=== PATIENT | female | born 1955 | race Caucasian/White ===

== ENCOUNTER → 2017-05-26 | Outpatient (CLI) | payer OTHER ==
--- NOTE | 2017-05-28 10:29 | MM ---
Reason for exam: screening (asymptomatic). Last mammogram was performed 1 year ago. History: Patient is postmenopausal and had first child at age 33. Physical Findings: A clinical breast exam by your physician is recommended on an annual basis and results should be correlated with mammographic findings. MG Screening Mammo w CAD Bilateral CC and MLO view(s) were taken. Prior study comparison: May 26, 2016, bilateral MG screening mammo w CAD. May 25, 2015, bilateral MG screening mammo w CAD. May 22, 2014, bilateral MG screening mammo w CAD. The breast tissue is heterogeneously dense. This may lower the sensitivity of mammography. No significant changes when compared with prior studies. ASSESSMENT: Benign, BI-RAD 2 RECOMMENDATION: Routine screening mammogram of both breasts in 1 year.
== END | disposition home or self-care (01) ==
LOC: RADMAMWWP 08:03
PROVIDERS: ATTEND Internal Medicine
DX: Z12.31 Encounter for screening mammogram for malignant neoplasm of breast (principal)

== ENCOUNTER → 2018-06-23 | Outpatient (CLI) | payer OTHER ==
--- NOTE | 2018-06-24 15:07 | MM ---
Reason for exam: screening (asymptomatic). Last mammogram was performed 1 year and 1 month ago. History: Patient is postmenopausal and had first child at age 33. Physical Findings: A clinical breast exam by your physician is recommended on an annual basis and results should be correlated with mammographic findings. MG Screening Mammo w CAD Bilateral CC and MLO view(s) were taken. Prior study comparison: May 26, 2017, bilateral MG screening mammo w CAD. May 26, 2016, bilateral MG screening mammo w CAD. There are scattered fibroglandular densities. There is no discrete abnormality. No significant changes when compared with prior studies. ASSESSMENT: Negative, BI-RAD 1 RECOMMENDATION: Routine screening mammogram of both breasts in 1 year.
== END | disposition home or self-care (01) ==
LOC: RADMAMWWP 16:51
PROVIDERS: ATTEND Internal Medicine
DX: Z12.31 Encounter for screening mammogram for malignant neoplasm of breast (principal)
CPT/HCPCS: 77067

== ENCOUNTER → 2019-08-01 | Outpatient (CLI) | payer OTHER ==
--- NOTE | 2019-08-02 12:56 | MM ---
Reason for exam: screening (asymptomatic). Last mammogram was performed 1 year and 1 month ago. History: Patient is postmenopausal and had first child at age 33. Physical Findings: A clinical breast exam by your physician is recommended on an annual basis and results should be correlated with mammographic findings. MG Screening Mammo w CAD Bilateral CC and MLO view(s) were taken. Prior study comparison: June 23, 2018, bilateral MG screening mammo w CAD. May 26, 2017, bilateral MG screening mammo w CAD. The breast tissue is heterogeneously dense. This may lower the sensitivity of mammography. No suspicious abnormality. No significant changes when compared with prior studies. ASSESSMENT: Negative, BI-RAD 1 RECOMMENDATION: Routine screening mammogram of both breasts in 1 year.
== END | disposition home or self-care (01) ==
LOC: RADMAMWWP 11:46
PROVIDERS: ATTEND Internal Medicine
DX: Z12.31 Encounter for screening mammogram for malignant neoplasm of breast (principal)
CPT/HCPCS: 77067

== ENCOUNTER → 2020-10-02 | Outpatient (CLI) | payer OTHER ==
--- NOTE | 2020-10-03 14:39 | MM ---
Reason for exam: screening (asymptomatic). Last mammogram was performed 1 year and 2 months ago. History: Patient is postmenopausal, history of other cancer, and had first child at age 33. Physical Findings: A clinical breast exam by your physician is recommended on an annual basis and results should be correlated with mammographic findings. MG Screening Mammo w CAD Bilateral CC and MLO view(s) were taken. CV view(s) were taken of the right breast. Prior study comparison: August 01, 2019, bilateral MG screening mammo w CAD. June 23, 2018, bilateral MG screening mammo w CAD. There are scattered fibroglandular densities. No significant changes when compared with prior studies. ASSESSMENT: Benign, BI-RAD 2 RECOMMENDATION: Routine screening mammogram of both breasts in 1 year.
== END | disposition home or self-care (01) ==
LOC: RADMAMWWP 08:09
PROVIDERS: ATTEND Internal Medicine
DX: Z12.31 Encounter for screening mammogram for malignant neoplasm of breast (principal)
CPT/HCPCS: 77067

== ENCOUNTER → 2021-10-30 | Outpatient (CLI) | payer OTHER ==
--- NOTE | 2021-11-01 09:21 | MM ---
Reason for exam: screening (asymptomatic). Last mammogram was performed 1 year and 1 month ago. History: Patient is postmenopausal, history of other cancer, and had first child at age 33. Physical Findings: A clinical breast exam by your physician is recommended on an annual basis and results should be correlated with mammographic findings. MG Screening Mammo w CAD Bilateral CC and MLO view(s) were taken. Prior study comparison: October 02, 2020, bilateral MG screening mammo w CAD. August 01, 2019, bilateral MG screening mammo w CAD. There are scattered fibroglandular densities. There is chronic nodularity in the left breast. No significant changes when compared with prior studies. ASSESSMENT: Benign, BI-RAD 2 RECOMMENDATION: Routine screening mammogram of both breasts in 1 year.
== END | disposition home or self-care (01) ==
LOC: RADMAMWWP 16:31
PROVIDERS: ATTEND Internal Medicine
DX: Z12.31 Encounter for screening mammogram for malignant neoplasm of breast (principal)
CPT/HCPCS: 77067

== ENCOUNTER → 2022-11-04 | Outpatient (CLI) | payer OTHER ==
--- NOTE | 2022-11-05 08:26 | MM ---
Reason for Exam: Screening (asymptomatic). Last screening mammogram was performed 12 month(s) ago. Patient History: Menarche at age 13. First Full-Term at age 33. Late child-bearing (after 30). Postmenopausal. Other cancer. Risk Values: Esmer 5 year model risk: 2.3%. NCI Lifetime model risk: 8.2%. Prior Study Comparison: 05/26/2016 Bilateral Screening Mammogram, [facility]. 05/26/2017 Bilateral Screening Mammogram, [facility]. 06/23/2018 Bilateral Screening Mammogram, [facility]. 08/01/2019 Bilateral Screening Mammogram, [facility]. 10/02/2020 Bilateral Screening Mammogram, [facility]. 10/30/2021 Bilateral Screening Mammogram, [facility]. Tissue Density: The breast tissue is almost entirely fat. Findings: Analyzed By CAD. There is no suspicious group of microcalcifications or new suspicious mass in either breast. Overall Assessment: Negative, BI-RAD 1 Management: Screening Mammogram of both breasts in 1 year. A clinical breast exam by your physician is recommended on an annual basis and results should be correlated with mammographic findings. [facility] will attempt to contact patient to return for supplemental views and ultrasound if indicated. Electronically signed and approved by: Yao Carlton DO
== END | disposition home or self-care (01) ==
LOC: RADMAMWWP 13:14
PROVIDERS: ATTEND Internal Medicine
DX: Z12.31 Encounter for screening mammogram for malignant neoplasm of breast (principal); Z78.0 Asymptomatic menopausal state
CPT/HCPCS: 77067

== ENCOUNTER 2023-01-20 10:00 | Day surgery (SDC) | payer OTHER ==
[2023-01-15 10:16] VITALS: BMI 49.4
[~2023-01-20 10:00] MED LIST: LACTATED RINGERS 1,000 ML IV SCH; LIDOCAINE 1% (10MG/ML) FOR IV START INTRADERMA PRN
[2023-01-20 10:35] VITALS: RESP 16; TEMP 98.8
[2023-01-20] MEDS ORDERED: PROPOFOL 10 MG/ML 20 ML VIAL IV ONE (11:21)
--- NOTE | 2023-01-20 11:38 | P.PCN ---
Date of Procedure: 01/20/23 Procedure(s) Performed: BRIEF HISTORY: Patient is a 67-year-old pleasant white female scheduled for an elective colonoscopy as a part of evaluation of prior history of colon polyps. PROCEDURE PERFORMED: Colonoscopy. PREOPERATIVE DIAGNOSIS: History of colon polyps. IV sedation per Anesthesia. PROCEDURE: After informed consent was obtained, the patient, was brought into the endoscopy unit. IV sedation was administered by Anesthesia under continuous monitoring. Digital rectal examination was normal. Initially the Olympus CF-160 flexible video colonoscope was then inserted in the rectum, gradually advanced into the cecum without any difficulty. Careful examination was performed as the scope was gradually being withdrawn. Ileocecal valve and the appendiceal orifice were visualized and appeared normal. Prep was excellent. Mucosa of the cecum, ascending colon, transverse colon, descending colon, sigmoid colon, and rectum appeared normal. Scattered sigmoid diverticula Retroflexion was performed in the rectum and no lesions were seen. The patient tolerated the procedure well. IMPRESSION: Normal-appearing colon from rectum to cecum no evidence of colorectal neoplasia Moderate sigmoid diverticulosis . RECOMMENDATIONS: Findings of this examination were discussed with the patient as well as a family. She was advised to have a repeat screening colonoscopy in 10 years..
[2023-01-20 12:15] VITALS: BP 120/59; PULSE 86
== END 2023-01-20 12:42 | disposition home or self-care (01) ==
LOC: ORWHC2ENDO 10:00
PROVIDERS: ATTEND Internal Medicine Gastroenterology
DX: Z12.11 Encounter for screening for malignant neoplasm of colon (principal); K57.30 Diverticulosis of large intestine without perforation or abscess without bleeding; I10 Essential (primary) hypertension; Z87.19 Personal history of other diseases of the digestive system; Z79.899 Other long term (current) drug therapy
CPT/HCPCS: 45378; J2704

== ENCOUNTER → 2024-01-16 | Outpatient (CLI) | payer OTHER ==
[2024-01-16 12:06] LABS: INR 0.9 (<1.2); Partial Thromboplastin Time 24.1 sec (22.0-30.0); Prothrombin Time 10.1 sec (10.0-12.5)
[2024-01-16 22:31] LABS: HCT 40.9 % (37.2-46.3); HGB 13.1 g/dL (12.0-15.0); MCV 93.8 FL (80.0-97.0); Mean Platelet Volume 11.6 FL (9.5-12.2); NRBC Per 100 WBC 0 X 10*3/uL (0.00-0.01); Platelet Count 243 X 10*3/uL (140-440); RBC 4.36 X 10*6/uL (4.10-5.20); RDW 13.1 % (11.5-14.5); WBC 5.88 X 10*3/uL (4.50-10.00)
[2024-01-16 22:45] LABS: ALT 15 U/L (8-44); AST 18 U/L (13-35); Albumin 4.3 g/dL (3.8-4.9); Albumin/Globulin Ratio 1.43 Ratio (1.60-3.17); Alkaline Phosphatase 71 U/L (41-126); BUN/Creat Ratio 35.15 Ratio (12.00-20.00); Blood Urea Nitrogen 45.7 mg/dL (9.0-27.0); Carbon Dioxide 23.7 mmol/L (21.6-31.8); Chloride 107 mmol/L (96-109); Glucose 99 mg/dL (70-110); Sodium 144 mmol/L (135-145); Total Bilirubin 0.7 mg/dL (0.3-1.2); Total Protein 7.3 g/dL (6.2-8.2)
== END | disposition home or self-care (01) ==
LOC: LABWHC1 11:26
PROVIDERS: ATTEND Orthopaedic Surgery
DX: Z01.812 Encounter for preprocedural laboratory examination (principal); Z22.322 Carrier or suspected carrier of Methicillin resistant Staphylococcus aureus; M17.12 Unilateral primary osteoarthritis, left knee
CPT/HCPCS: 36415; 80053; 85027; 85610; 85730; 87070; 93005

== ENCOUNTER → 2024-02-01 | Outpatient (CLI) | payer OTHER ==
--- NOTE | 2024-02-01 17:44 | BD ---
EXAMINATION TYPE: Axial Bone Density DATE OF EXAM: 02/01/2024 CLINICAL HISTORY: 68 years old Female. ICD-10 CODE: N95.1MENOPAUSAL AND FEMALE CLIMACTERIC STA M85. 88 Height: 60.25 Weight: 269 FRAX RISK QUESTIONS: Family History (Parent hip fracture): no History of Fracture in Adulthood: no Secondary Osteoporosis: no Rheumatoid Arthritis: no RISK FACTORS HISTORY OF: Surgery to Spine/Hip(right/left)/Wrist (right/left): no MEDICATIONS: Thyroid Medications: no Osteoporosis Medications: no EXAM MEASUREMENTS: Bone mineral densitometry was performed using the Choister System. Bone mineral density as measured about the Lumbar spine is: ----- L1-L4(G/cm2): 1.159 T Score Values are as follows: ----- L1: 0.0 ----- L2: 0.9 ----- L3: -0.4 ----- L4: -1.6 ----- L1-L4: -0.2 Z Score Values are as follows: ----- L1: 0.5 ----- L2: 1.4 ----- L3: 0.1 ----- L4: -1.1 ----- L1-L4: 0.3 Bone mineral density has: Increased 11.8% since study of: 05/25/2015 Bone mineral density about the R hip (g/cm2): 1.080 Bone mineral density about the L hip (g/cm2): 1.182 T Score values are as follows: -----R Neck: -0.2 -----L Neck: -0.1 -----R Total: 0.6 -----L Total: 1.4 Z Score values are as follows: -----R Neck: 0.6 -----L Neck: 0.8 -----R Total: 1.1 -----L Total: 1.9 Bone mineral density has: Decreased -4.2% since study of: 05/25/2015 FRAX%s: The graph provided illustrates a 5.8% chance for a major osteoporotic fx and a 0.2% chance fo r the hips probability for fx in 10 years time. IMPRESSION: Normal (Values between +1 and -1 indicate normal bone mass). Consider repeating this study in 5 year s or sooner if there is some new clinical indication. NOTE: T-SCORE=SD OF THE YOUNG ADULT MEAN.
--- NOTE | 2024-02-03 08:35 | MM ---
Reason for Exam: Screening (asymptomatic). Last mammogram was performed 1 year(s) and 3 month(s) ago. Patient History: Menarche at age 13. First Full-Term at age 33. Late child-bearing (after 30). Postmenopausal. Other cancer. Risk Values: Esmer 5 year model risk: 2.3%. NCI Lifetime model risk: 7.9%. Prior Study Comparison: 10/02/2020 Bilateral Screening Mammogram, [facility]. 10/30/2021 Bilateral Screening Mammogram, [facility]. 11/04/2022 Bilateral MG screening mammo w CAD, [facility]. Tissue Density: The breasts are heterogeneously dense, which may obscure small masses. Findings: Analyzed By CAD. No suspicious calcifications. Within the right breast approximately 3.6 cm from the nipple centrally there is a nodule which is increased in size now measuring 0.9 cm. Recommend ultrasound. Chronic nodularity and benign-appearing lymph nodes. Benign calcifications. Overall Assessment: Incomplete: need additional imaging evaluation, BI-RAD 0 Management: Diagnostic Breast Ultrasound of the right breast. . Patient should continue monthly self-breast exams. A clinical breast exam by your physician is recommended on an annual basis. This exam should not preclude additional follow-up of suspicious palpable abnormalities. Note on Esmer scores and lifetime risk: 1. A Esmer score greater than 3% is considered moderate risk. If this is the case, consider specialist referral to assess eligibility for a risk reducing agent. 2. If overall lifetime risk for the development of breast cancer is 20% or higher, the patient may qualify for future screening with alternating mammogram and breast MRI. Electronically signed and approved by: Cholo Grewal M.D. Radiologis
== END | disposition home or self-care (01) ==
LOC: RADMAMWWP 14:01
PROVIDERS: ATTEND Internal Medicine
DX: Z12.31 Encounter for screening mammogram for malignant neoplasm of breast (principal); M85.88 Other specified disorders of bone density and structure, other site; Z78.0 Asymptomatic menopausal state
CPT/HCPCS: 77067; 77080

== ENCOUNTER → 2024-02-04 | Outpatient (CLI) | payer OTHER ==
--- NOTE | 2024-02-04 14:36 | USB ---
Reason for Exam: Additional evaluation requested from abnormal screening. Patient History: Menarche at age 13. First Full-Term at age 33. Late child-bearing (after 30). Postmenopausal. Other cancer. Risk Values: Esmer 5 year model risk: 2.3%. NCI Lifetime model risk: 7.9%. Technique: Method: Targeted. Prior Study Comparison: 10/30/2021 Bilateral Screening Mammogram, [facility]. 11/04/2022 Bilateral MG screening mammo w CAD, [facility]. 02/01/2024 Bilateral MG screening mammo w CAD, [facility]. Findings: The lower section of the breast of the right breast, the axilla of the right breast and the retroareolar of the right breast were scanned. There is a 0.7 x 0.3 x 0.8 cm hypoechoic area 7:00 position 4 cm from the nipple. This appears to correlate with the mammogram. This is not a simple cyst. Ultrasound-guided core biopsy is recommended.. Overall Assessment: Suspicious, BI-RAD 4 Management: Ultrasound Core Biopsy of the right breast. A clinical breast exam by your physician is recommended on an annual basis and results should be correlated with mammographic findings. This exam should not preclude additional follow-up of suspicious palpable abnormalities. Results were given to the patient verbally at the time of exam. Electronically signed and approved by: Sarmad Tran D.O. Radiologis
== END | disposition home or self-care (01) ==
LOC: RADUSWWP 13:59
PROVIDERS: ATTEND Internal Medicine
DX: R92.8 Other abnormal and inconclusive findings on diagnostic imaging of breast (principal); Z78.0 Asymptomatic menopausal state

== ENCOUNTER 2024-02-08 13:07 | Day surgery (SDC) | payer OTHER ==
[~2024-02-08 13:07] MED LIST changes: -LACTATED RINGERS 1,000 ML IV SCH; -LIDOCAINE 1% (10MG/ML) FOR IV START INTRADERMA PRN; +ONDANSETRON 4 MG/2 ML VIAL IVP PRN; +TRANEXAMIC 1,000 MG/100ML-NACL 1,000 MG in SALINE 1 100ML.BAG IVPB PRN
[2024-02-08] MEDS: MELOXICAM 7.5 MG TAB PO PRN (14:01)
[2024-02-08] MEDS: ACETAMINOPHEN TAB 500 MG TAB PO PRN (14:01)
[2024-02-08] MEDS: DEXAMETHASONE SOD PHOSPHATE 4 MG/ML 1 ML VIAL IV ONE (14:02)
[2024-02-08] MEDS: LACTATED RINGERS 1,000 ML IV SCH ×2 (14:02→23:00)
[2024-02-08] MEDS: ONDANSETRON 4 MG/2 ML VIAL IVP ONE (14:03)
[2024-02-08] MEDS: MIDAZOLAM 2 MG/2 ML VIAL IVP ONE (14:12)
--- NOTE | 2024-02-08 14:39 | P.ANPRN ---
Procedure Note - Anesthesia - Nerve Block Performed Left Adductor Canal Infusion Time Out Performed: Yes (1412) Date of Procedure: 02/08/24 Procedure Start Time: 14:15 Procedure Stop Time: 14:28 Location of Patient: PreOp Indication: Acute Post-Operative Pain, Requested by Surgeon Sedation Type: Sedate with meaningful contact maintained Preparation: Sterile Prep, Sterile Dressing Position: Supine Catheter: Indwelling Needle Types: Pajunk Needle Gauge: 18 Ultrasound used to visualize needle placement: Yes Ultrasound used to observe medication spread: Yes Injectate: 0.5% Ropivacaine (see comment for volume) (20 mL of block solution containing 10 ML of ropivacaine 0.5% mixed with 10 ML of 0.9% preservative-free normal saline) Blood Aspirated: No Pain Paresthesia on Injection Noted: No Resistance on Injection: Normal Image Stored and Saved: Yes Events: Other (see comment) (5 mL of block solution injected throughcatheter after negative aspiration.)
--- NOTE | 2024-02-08 14:40 | P.ANPRN ---
Procedure Note - Anesthesia - Nerve Block Performed Left iPack Single Time Out Performed: Yes (1412) Date of Procedure: 02/08/24 Procedure Start Time: 14:15 Procedure Stop Time: 14:28 Location of Patient: PreOp Indication: Acute Post-Operative Pain, Requested by Surgeon Sedation Type: Sedate with meaningful contact maintained Preparation: Sterile Prep, Sterile Dressing Position: Supine Catheter: None Needle Types: Pajunk Needle Gauge: 21 Ultrasound used to visualize needle placement: Yes Ultrasound used to observe medication spread: Yes Injectate: 0.5% Ropivacaine (see comment for volume) (20 mL of block solution containing 10 ML of ropivacaine 0.5% mixed with 10 ML of 0.9% preservative-free normal saline) Blood Aspirated: No Pain Paresthesia on Injection Noted: No Resistance on Injection: Normal Image Stored and Saved: Yes Events: Uneventful and Well Tolerated
[2024-02-08] MEDS ORDERED: bisacodyL 10 MG SUPP RECTAL PRN (15:26)
[2024-02-08] MEDS ORDERED: NALOXONE 0.4 MG/ML 1 ML VIAL IV PRN (15:26)
[2024-02-08] MEDS ORDERED: HYDROmorphone 0.5 MG/0.5 ML SYRINGE IVP PRN ×3 (15:26)
[2024-02-08] MEDS ORDERED: MAGNESIUM HYDROXIDE 2,400 MG/30 ML CUP PO PRN (15:26)
[2024-02-08] MEDS ORDERED: HYDROcodone/APAP 5-325MG 1 EACH TAB PO PRN (15:26)
[2024-02-08] MEDS ORDERED: GLYCOPYRROLATE 0.2 MG/ML 2 ML VIAL ONE (15:42)
[2024-02-08] MEDS ORDERED: TRANEXAMIC 1,000 MG/100ML-NACL PREMIX BAG ONE (15:42)
[2024-02-08] MEDS ORDERED: diphenhydrAMINE 50 MG/ML 1 ML VIAL ONE (15:42)
[2024-02-08] MEDS ORDERED: KETAMINE HCL IN 0.9 % NACL 50 MG/5 ML SYRINGE ONE (15:42)
[2024-02-08] MEDS ORDERED: fentaNYL (PF) 50 MCG/ML 2 ML AMP ONE (15:42)
[2024-02-08] MEDS ORDERED: PROPOFOL 10 MG/ML 20 ML VIAL IV ONE (15:42)
[2024-02-08] MEDS ORDERED: ROPIVACAINE 5 MG/ML 30 ML VIAL ONE (15:42)
[2024-02-08] MEDS ORDERED: SODIUM CHLORIDE 0.9% (PF) 10 ML VIAL ONE (15:42)
[2024-02-08] MEDS ORDERED: HYDROmorphone (PF) 1 MG/ML ONE (15:42)
[2024-02-08] MEDS ORDERED: MIDAZOLAM 2 MG/2 ML VIAL ONE (15:42)
[2024-02-08] MEDS: ceFAZolin 3 GM in SODIUM CHLORIDE 0.9% 100 ML IVPB PRN (15:47)
[2024-02-08] MEDS: ceFAZolin 1,000 MG in SODIUM CHLORIDE 0.9% 1,000 ML IRRIGATION ONE (16:15)
[2024-02-08] MEDS: LACTATED RINGERS 1,000 ML IV ONE (17:44)
--- NOTE | 2024-02-08 17:48 | P.OP ---
Date of Procedure: 02/08/24 Procedure(s) Performed: PREOPERATIVE DIAGNOSIS: 1. Left knee severe osteoarthritis with genu varum; 2. Extreme obesity (BMI 51), peripheral and central POSTOPERATIVE DIAGNOSIS: Left knee severe osteoarthritis with genu varum; 2. Extreme obesity (BMI 51), peripheral and central; 2. Diminished bone qual ity/osteopenia/osteoporosis OPERATION: Left knee cemented total replacement arthroplasty with stem extension; Increased complexity of case due to extreme peripheral obesity ANESTHESIA: Spinal and Regional (for postoperative pain control) ESTIMATED BLOOD LOSS: 75 ml. AIR DIRECTOR: Veronica Guardado PA-C (assistance with: patient positioning, retraction, exposure, hemostasis, leg positioning, implantation, irrigation, closure, dressing) COMPLICATIONS: None apparent. COMPONENTS IMPLANTED: Persona system from [employer] with tibial stem extension INDICATIONS: Lorenza is a 68 year old morbidly obese female with a history of severe left knee osteoarthritis. The patient's knee is end-stage, and conservative management has failed. Her left knee hyperextends by approximately 7 degrees and she has nearly 10 degrees of varus. She has undergone right knee replacement more than 10 years ago with good results. The operation of left knee replacement has been discussed at length in the office, as well as potential risks and complications. These are inclusive of, but not limited to: bleeding, infection, scarring, discomfort, blood vessel and nerve damage, need for further surgery, failure to relieve symptoms, persistence, recurrence, or worsening of problems, loosening, dislocation, wear, blood clot, pulmonary embolism, , gait dysfunction, stiffness, and other risks as discussed in the office. The patient elects to proceed and the consent form has been signed. PROCEDURE: The patient was taken to the operating room and positioned on the operating room table in the supine position. Anesthesia was initiated. Care was taken to make sure that all pressure points were adequately padded. The operative lower extremity was prepped and draped in the usual aseptic fashion using ChloraPrep. Ioban drape was used for the case and the patient received intravenous antibiotics within one hour of the incision. A pneumotourniquet and leg fulton were used for the case. The limb was exsanguinated with an Esmarch bandage and the tourniquet was inflated to 300 mmHg. Time-out was called confirming the patient's identity, side, procedure and administration of antibiotics and tranexamic acid. The incision was then created midline directly over the knee, carried down through skin and into the subcutaneous tissues and down to fascia. Severe peripheral obesity was noted. Full thickness subcutaneous medial flap was developed. Exposure was made more difficult due to the patient's severe obesity. Medial parapatellar arthrotomy was performed and the interior of the knee was inspected. There was end-stage osteoarthritis of the knee with a mild to moderate genu varum type deformity. The fat pad was excised and proximal medial release on the tibia was completed using meticulous dissection and a curved osteotome. The anterior cruciate ligament was taken down. Note was made of significant attrition of the anterior and significant degenerative appearance of the posterior cruciate ligaments. The exposure was excellent. The knee was flexed 90 degrees and the patella was everted. A spot was chosen on the femur approximately 1 cm anterior to the posterior cruciate ligament insertion and an intramedullary hole was created within the femur. The intramedullary guide was then set to 5 degrees of valgus. The distal cutting block was attached and pinned into position. An appropriate amount of distal femoral resection was set, and 2 mm was subtracted from the resection due to the patient's knee hyperextension. The oscillating saw was then used to make the distal femoral cut. This cut was confirmed to be flat with the flat end of an osteotome. The retractors were placed around the tibia and the tibial surface was addressed. The angle and depth of resection was adjusted using an extramedullary cutting guide, which needed to be placed in maximum diameter setting due to the circumference of the patient's ankle. The guide had a built-in 3 degree posterior slope cut. Alignment of the guide was made significantly more difficult due to the patient's severe obesity. Once the cutting guide was adjusted appropriately and in line with the axis of the tibia and confirmed to be in good position in relation to the second metatarsal and transmalleolar axis, the tibial cut was then created with protection of the posterior neurovascular structures and the collateral ligaments. Note was made of diminished bone quality, despite this patient's obesity, and therefore a short tibial stem extension was planned. The tibial cut surface was removed and sized. Femoral sizing was then accomplished using anterior referencing. Placement of this guide was made more difficult due to this patient's severe obesity. Care was taken to analyze the posterior condyles for signs of deficiency or severe wear, and adjustments to the guide were made, as appropriate. 5 degree external rotation pins were placed. The cutting jig for the femur was applied to these pins. The planned cuts were further analyzed prior to performing them with the oscillating saw. No femoral notching was produced. Bone fragments were removed and the cut surfaces were finished, as necessary, with a reciprocating saw. Spacer block technique was then used to confirm that the flexion and extension gaps were equal. Soft tissue releases and adjustment of the tibial and/or femoral cuts were made, as necessary, until the gaps were equal. This included release of the posterior cruciate ligament, which was tight in this patient and, if left unreleased, would have resulted in poor kinematics and possibly early loosening. The femur was then further finished for a posterior cruciate ligament substituting component. Patellar resurfacing was performed using a reamer. The size of the required patellar component was estimated and the patellar surface was then reamed down to a residual thickness which would recreate the [place] thickness with the component. This step was also made more complex due to the patient's severe obesity. The exact placement of the patellar component was adjusted for position based on preoperative x-rays and intraoperative findings. The trial components were inserted. The tibial tray was allowed to self center and the patella was noted to track very well. The position of the tibial component was marked and the tibia was then finished for a stemmed tibial component. Cement was mixed on the back table and applied to the final components. Trial components were removed and the cut surfaces of the bone were pulse lavaged thoroughly and dried. Cement was then applied to the tibial surface and pressurized into the surface using finger pressurization technique. The tibial component with stem extension was then applied and excess cement was removed after it was impacted securely and noted to be flush with the cut surface. In similar fashion, the cement was applied to the cut femoral surface, pressurized in using finger pressurization and the component was impacted into place. Excess cement was removed. The polyethylene spacer was then implanted and locked into position. The patellar component was then applied in similar technique and a patellar clamp was used to hold the patella in place as the cement hardened. Once the cement had fully hardened, the knee was reinspected. Any other cement extrusion was removed and final kinematic testing showed range of motion from 0 to 130 degrees with excellent stability, both medially and laterally and appropriate alignment of the leg. Hyperextension and varus had both been corrected to satisfaction. Patellar tracking was excellent. The knee was then thoroughly pulse lavaged with normal saline. The tourniquet was deflated and hemostasis was obtained with electrocautery and IV tranexamic acid, 1 g given at the start of the operation and 1 g at the start of closure. Closure was with #2 Ethibond in the fascia/capsule and supplemented with #2 Quill, 2-0 Vicryl suture was used for the subcutaneous tissues and 3-0 Quill for the skin. Closure was made more complex and took increased time due to the patient's severe obesity. Dermabond/Steri-Strips were then applied. A lightly compressive dressing was applied using Webril and an Darvin wrap. The patient was then transferred to stretcher and taken to the recovery room in stable condition. Sponge and needle counts were correct.
[2024-02-08] MEDS: HYDROmorphone 0.5 MG/0.5 ML SYRINGE IVP PRN (18:39)
--- NOTE | 2024-02-08 18:56 | XR ---
Left knee. HISTORY: Postop alignment COMPARISON: None. TECHNIQUE: 2 views left knee were obtained following placement of a left knee prosthesis. FINDINGS: There is near-anatomic alignment. There is no acute fracture.
[2024-02-08] MEDS: ROPIVACAINE 1,100 MG, SODIUM CHLORIDE 0.9% 500 ML 330 ML, EMPTY PAIN BALL 1 EACH MISCELLANE PRN (19:57)
[2024-02-08] MEDS: ONDANSETRON 4 MG/2 ML VIAL IVP PRN (20:56)
--- NOTE | 2024-02-08 22:18 | P.ANPRN ---
Procedure Note - Anesthesia - Nerve Block Performed Left Adductor Canal Infusion Time Out Performed: Yes (1912) Date of Procedure: 02/08/24 Procedure Start Time: :15 Procedure Stop Time: :25 Location of Patient: PreOp Indication: Acute Post-Operative Pain, Requested by Surgeon Sedation Type: Awake Preparation: Sterile Prep, Sterile Dressing Position: Supine Catheter: Indwelling Needle Types: Pajunk Needle Gauge: 18 Ultrasound used to visualize needle placement: Yes Ultrasound used to observe medication spread: Yes Injectate: 0.5% Ropivacaine (see comment for volume) Narrative: catheter was removed during the intraoperative procedure as per the surgeon it is close to the insertion site. Requested to place the catheter again in the recovery. Blood Aspirated: Yes Pain Paresthesia on Injection Noted: Yes Resistance on Injection: Normal Image Stored and Saved: Yes Events: Other (see comment) (20 ML of blocks block solution containing 10 ML of 0.5% ropivacaine mixed with 10 ML of preservative-free normal saline. 10mL out of 20 ML block solution used after catheter placement confirmation.)
[2024-02-08] MEDS: ASPIRIN 81 MG PO SCH (22:25)
[2024-02-08] MEDS: SENNOSIDES-DOCUSATE SODIUM 1 EACH TAB PO SCH (22:25)
[2024-02-08] MEDS: ceFAZolin 3 GM in SODIUM CHLORIDE 0.9% 100 ML IVPB SCH (22:34)
[2024-02-09] MEDS: HYDROcodone/APAP 5-325MG 1 EACH TAB PO PRN (01:35)
--- NOTE | 2024-02-09 07:16 | P.PN ---
Progress Note - Text Progress Note Date: 02/09/24 patient was seen and evaluated at bedside. Status post postoperative day 1 for left total knee arthroplasty patient had adductor canal catheter for postop pain control. Patient rated pain at rest 2-3 out of 10 in severity. Patient describes pain is aching, throbbing type on the sides of the knee and back of the knee. Patient started walking with support. With activity patient pain levels are 5-6 out of 10 in severity. With the help of oral pain medications pain levels are tolerable. Patient denied any weakness/ numbness in lower extremities. patient denied any fever, pain over the catheter site. Physical exam: Patient vital signs stable Patient is alert awake oriented 3 responding to all questions appropriately Examination of the catheter site showed dressing intact, no leaking fluid around the catheter, no redness, no tenderness over the catheter insertion area. plan: status post postoperative day 1 for Left total knee arthroplasty with adductor canal catheter for pain control. Patient was discussed to continue the medication at the rate of 8 mL per hour until the pump is completely empty and instructed the patient how to discontinue the catheter.
[2024-02-09] MEDS: MELOXICAM 7.5 MG TAB PO SCH (07:46)
[2024-02-09 08:13] VITALS: BP 114/63; PULSE 65; RESP 17; TEMP 97.8
[2024-02-09 08:48] LABS: Basophils # (A) 0.01 X 10*3/uL (0.00-0.10); Basophils % (A) 0.1 %; Eosinophils # (A) 0 X 10*3/uL (0.04-0.35); Eosinophils % (A) 0 %; HCT 34.6 % (37.2-46.3); HGB 10.9 g/dL (12.0-15.0); Lymphocytes # (A) 0.59 X 10*3/uL (0.90-5.00); MCH 30.4 pg (27.0-32.0); MCHC 31.5 g/dL (32.0-37.0); MCV 96.6 FL (80.0-97.0); Mean Platelet Volume 11.4 FL (9.5-12.2); Monocytes # (A) 0.56 X 10*3/uL (0.20-1.00); Monocytes % (A) 4.7 %; NRBC Per 100 WBC 0 X 10*3/uL (0.00-0.01); Neutrophils # (A) 10.59 X 10*3/uL (1.80-7.70); Neutrophils % (A) 89.8 %; Platelet Count 201 X 10*3/uL (140-440); RBC 3.58 X 10*6/uL (4.10-5.20); RDW 13.4 % (11.5-14.5)
--- NOTE | 2024-02-09 09:37 | P.CONS ---
History of Present Illness - Reason for Consult Consult date: 02/09/24 Medical management - History of Present Illness this is a 68-year-old female patient of Dr. Trejo who presented for an elective left knee arthroplasty with Dr. Garcia.patient has medical history of skin cancer, essential hypertension and osteoarthritis. Patient is currently postop day 1. Patient is resting completely in bed. Patient denies chest pain or shortness breath. Patient denies any nausea vomiting or diarrhea.current vital signs temp 97.8, heart rate 65, respiratory rate 17, blood pressure 114/63 with pulse ox 97% on room air. Initial lab work has been ordered. Home meds resumed. Patient anticipates been DC'd home today per orthopedic services. P Review of Systems please refer to HPI otherwise unremarkable Past Medical History Past Medical History: Cancer, Hypertension, Osteoarthritis (OA) Additional Past Medical History / Comment(s): hx basal cell skin cancer., hx colon polyp, elevated kidney levels. History of Any Multi-Drug Resistant Organisms: None Reported Past Surgical History: Joint Replacement Additional Past Surgical History / Comment(s): total right knee, colonoscopy Past Anesthesia/Blood Transfusion Reactions: Postoperative Nausea & Vomiting (PONV) Past Psychological History: No Psychological Hx Reported Smoking Status: Never smoker Past Alcohol Use History: None Reported Past Drug Use History: None Reported - Past Family History Brother(s) Family Medical History: Cancer Additional Family Medical History / Comment(s): brother # 1 liver & colon cancer. brother #2 unknown type of cancer Medications and Allergies Home Medications Medication Instructions Recorded Confirmed Type Jude/D3/Mag11/Zinc/Pawn Shop Keeper/Anthony/Bor 1 each PO DAILY 01/15/23 02/08/24 History [Caltrate 600+D Plus Tablet] Mayo Supplement 1 dose PO DAILY 01/15/23 02/08/24 History Cholecalciferol [Vitamin D3 (25 25 mcg PO DAILY 01/15/23 02/08/24 History Mcg = 1000 Iu)] Febuxostat 40 mg PO DAILY 01/15/23 02/08/24 History Furosemide [Lasix] 40 mg PO DAILY 01/15/23 02/08/24 History Mv,Calcium,Min/Iron/Folic/Vitk 1 each PO DAILY 01/15/23 02/08/24 History [One-A-Day Women's Complete Tab] Vitamin C (Unknown Dose) 1 dose PO DAILY 01/15/23 02/08/24 History lisinopriL 40 mg PO DAILY 01/15/23 02/08/24 History Acetaminophen [Tylenol Arthritis] 1 tab PO BID PRN 02/03/24 02/08/24 History Aspirin [Adult Low Dose Aspirin EC] 81 mg PO BID #1 tab 02/08/24 Rx HYDROcodone/APAP 7.5-325MG [[place]ama 1 - 2 tab PO Q6HR PRN #32 tab 02/08/24 Rx 7.5-325] Meloxicam 7.5 mg PO DAILY PRN #30 tab 02/08/24 Rx Ondansetron Odt [Zofran Odt] 4 mg PO Q8HR PRN #14 tab 02/08/24 Rx Sennosides-Docusate Sodium 1 tab PO BID #60 tablet 02/08/24 Rx [Senokot-S] Allergies Allergy/AdvReac Type Severity Reaction Status Date / Time dill pickles Allergy Unknown Unknown Uncoded 02/08/24 13:36 Childhood Physical Exam Vitals: Vital Signs Temp Pulse Pulse Pulse Resp BP Pulse Ox 02/09/24 07:05 97.8 F 65 17 114/63 96 02/09/24 01:27 98.7 F 56 L 20 118/64 97 02/08/24 23:34 52 L 116/75 97 02/08/24 23:20 46 L 125/54 98 02/08/24 22:35 57 L 115/64 100 02/08/24 22:05 48 L 95/42 99 02/08/24 21:34 46 L 113/72 94 L 02/08/24 20:05 49 L 17 111/51 98 02/08/24 19:50 47 L 15 114/50 98 02/08/24 19:35 49 L 19 104/53 92 L 02/08/24 19:34 98.6 F 62 20 139/70 98 02/08/24 19:20 49 L 20 107/58 97 02/08/24 19:05 48 L 15 107/50 98 02/08/24 18:50 50 L 16 107/43 94 L 02/08/24 18:35 46 L 19 118/53 98 02/08/24 18:20 97.5 F L 52 L 14 112/54 94 L 02/08/24 14:35 62 18 135/58 98 02/08/24 14:24 63 18 137/59 98 02/08/24 14:02 98.1 F 77 20 143/65 96 Intake and Output 02/08/24 02/09/24 02/09/24 22:59 06:59 14:59 Intake Total 1101 480 Output Total 75 400 Balance 1026 80 Intake: IV 1101 Oral 480 Output: Urine 400 Estimated Blood Loss 75 Other: Voiding Method Toilet # Voids 2 Weight 122.8 kg Head normocephalic Neck supple Lungs clear to auscultation bilaterally no wheezing or crackles Heart regular rate and rhythm S1-S2, no rub or gallop Abdomen is soft nontender nondistended positive bowel sounds no hepat osplenomegaly Extremities no edema. Left knee dressing is clean dry and intact Neuro alert and orientated to 3 Results CBC & Chem 7: 02/09/24 04:24 Labs: Abnormal Lab Results - Last 24 Hours (Table) 02/09/24 Range/Units 04:24 WBC 11.80 H (4.50-10.00) X 10*3/uL RBC 3.58 L (4.10-5.20) X 10*6/uL Hgb 10.9 L (12.0-15.0) g/dL Hct 34.6 L (37.2-46.3) % MCHC 31.5 L (32.0-37.0) g/dL Immature Gran # 0.05 H (0.00-0.04) X 10*3/uL Neutrophils # 10.59 H (1.80-7.70) X 10*3/uL Lymphocytes # 0.59 L (0.90-5.00) X 10*3/uL Eosinophils # 0 L (0.04-0.35) X 10*3/uL Assessment and Plan Assessment: 1. Status post total left knee arthroplasty on 02/08/2024 2. History ofessential hypertension 3. History of osteoarthritis 4. History of skin cancer DVT prophylaxis aspirin per orthopedic services thank you for this consultation we'll continue to follow patient closely throughout stay repeat labs ordered Time with Patient: Greater than 30 (Greater than 60% of the total time spent in counseling and coordination of care)
[2024-02-09] MEDS: lisinopriL 20 MG TAB PO SCH (09:45)
[2024-02-09] MEDS: FUROSEMIDE 40 MG TAB PO SCH (09:45)
--- NOTE | 2024-02-09 11:16 | P.DS ---
Providers Expected date of discharge: 02/09/24 Attending physician: John Garcia Consults: 02/08/24 19:56 Consult Physician Routine Consulting Provider: Libby Dunn Consult Reason/Comments: Medical management Do you want consulting provider notified?: Yes Primary care physician: Sachin Patel Balboa - Discharge Diagnosis(es) (1) Osteoarthritis of left knee Current Visit: Yes Status: Acute (2) S/P total knee arthroplasty Current Visit: Yes Status: Acute Hospital Course: This is a 68-year-old female with known history of degenerative arthritis of the left knee. The patient presented for evaluation as an outpatient. After discussion and consideration patient elects to proceed with total knee arthroplasty. The patient is seen preoperatively by Dr. Garcia and medically cleared for surgery by their primary care physician. Patient is admitted to [facility] on 02/08/2024 for total knee arthroplasty. The procedure is performed without complication or sequelae. The patient is doing well postoperatively. Labs and vital signs are stable on day of discharge. On day of discharge patient's knee incision is healing well. There is minimal erythema. There is no drainage noted at this time. There is minimal soft tissue swelling to the knee. Patient has full foot and ankle motion without difficulty or pain. Calf is soft and nontender to palpation. Neurovascular status to the left lower extremity is intact. Patient is discharged home in good condition. Please see med rec for accurate list of home medications. Plan - Discharge Summary Discharge Rx Participant: No New Discharge Prescriptions: New Aspirin [Adult Low Dose Aspirin EC] 81 mg PO BID #1 tab Meloxicam 7.5 mg PO DAILY PRN #30 tab PRN Reason: Pain HYDROcodone/APAP 7.5-325MG [[place] 7.5-325] 1 - 2 tab PO Q6HR PRN #32 tab PRN Reason: Pain Sennosides-Docusate Sodium [Senokot-S] 1 tab PO BID #60 tablet Ondansetron Odt [Zofran Odt] 4 mg PO Q8HR PRN #14 tab PRN Reason: Nausea Continue lisinopriL 40 mg PO DAILY Furosemide [Lasix] 40 mg PO DAILY Mv,Calcium,Min/Iron/Folic/Vitk [One-A-Day Women's Complete Tab] 1 each PO DAILY Jude/D3/Mag11/Zinc/Equipment Hire Manager/Anthony/Bor [Caltrate 600+D Plus Tablet] 1 each PO DAILY Febuxostat 40 mg PO DAILY Cholecalciferol [Vitamin D3 (25 Mcg = 1000 Iu)] 25 mcg PO DAILY Vitamin C (Unknown Dose) 1 dose PO DAILY Mayo Supplement 1 dose PO DAILY No Action Acetaminophen [Tylenol Arthritis] 1 tab PO BID PRN PRN Reason: Pain Discharge Medication List Jude/D3/Mag11/Zinc/Equipment Hire Manager/Anthony/Bor [Caltrate 600+D Plus Tablet] 1 each PO DAILY 01/15/23 [History] Mayo Supplement 1 dose PO DAILY 01/15/23 [History] Cholecalciferol [Vitamin D3 (25 Mcg = 1000 Iu)] 25 mcg PO DAILY 01/15/23 [History] Febuxostat 40 mg PO DAILY 01/15/23 [History] Furosemide [Lasix] 40 mg PO DAILY 01/15/23 [History] Mv,Calcium,Min/Iron/Folic/Vitk [One-A-Day Women's Complete Tab] 1 each PO DAILY 01/15/23 [History] Vitamin C (Unknown Dose) 1 dose PO DAILY 01/15/23 [History] lisinopriL 40 mg PO DAILY 01/15/23 [History] Acetaminophen [Tylenol Arthritis] 1 tab PO BID PRN 02/03/24 [History] Aspirin [Adult Low Dose Aspirin EC] 81 mg PO BID #1 tab 02/08/24 [Rx] HYDROcodone/APAP 7.5-325MG [[place] 7.5-325] 1 - 2 tab PO Q6HR PRN #32 tab 02/08/24 [Rx] Meloxicam 7.5 mg PO DAILY PRN #30 tab 02/08/24 [Rx] Ondansetron Odt [Zofran Odt] 4 mg PO Q8HR PRN #14 tab 02/08/24 [Rx] Sennosides-Docusate Sodium [Senokot-S] 1 tab PO BID #60 tablet 02/08/24 [Rx] Follow up Appointment(s)/Referral(s): Veronica Guardado PAC [PHYSICIAN BILINGUAL TEACHER] - 2 Weeks [facility], [NON-STAFF] - As Needed Activity/Diet/Wound Care/Special Instructions: May bear wt as tolerated w walker. Remove optifoam dressing 7 days post op. May shower 72h post op. Wear compression stockings bilat legs 2 weeks post op. Discharge Disposition: HOME WITH HOME HEALTH SERVICES
== END 2024-02-09 13:29 | disposition home health service (06) ==
LOC: OR 13:07 → 4SSUR 18:09 → OR 02-09 13:29
PROVIDERS: ATTEND Orthopaedic Surgery
DX: M17.12 Unilateral primary osteoarthritis, left knee (principal); M21.162 Varus deformity, not elsewhere classified, left knee; M85.862 Other specified disorders of bone density and structure, left lower leg; M81.0 Age-related osteoporosis without current pathological fracture; G89.18 Other acute postprocedural pain; I10 Essential (primary) hypertension; E55.9 Vitamin D deficiency, unspecified; E66.01 Morbid (severe) obesity due to excess calories; Z68.43 Body mass index [BMI] 50.0-59.9, adult; Z79.899 Other long term (current) drug therapy; Z79.82 Long term (current) use of aspirin; Z96.651 Presence of right artificial knee joint; Z91.018 Allergy to other foods
CPT/HCPCS: 97161; 64999; 64448; 85025; 73560; 27447; C1713; C1776; C1751; J2250; J1100; J0690 ×3; J2405; J2795; J1170

== ENCOUNTER → 2024-03-18 | Day surgery (SDC) | payer OTHER ==
--- NOTE | 2024-03-25 11:15 | MM ---
Reason for Exam: Post Procedure Mammogram. Last screening mammogram was performed 2 month(s) ago. Patient History: Menarche at age 13. First Full-Term at age 33. Late child-bearing (after 30). Postmenopausal. Other cancer. Risk Values: Esmer 5 year model risk: 2.4%. NCI Lifetime model risk: 7.6%. Prior Study Comparison: 10/30/2021 Bilateral Screening Mammogram, [facility]. 11/04/2022 Bilateral MG screening mammo w CAD, [facility]. 02/01/2024 Bilateral MG screening mammo w CAD, [facility]. 02/04/2024 Right US breast workup limited RT, [facility]. Tissue Density: Right: The breasts are heterogeneously dense, which may obscure small masses. Pathology Description: Location: 7 o'clock. hydromark butterfly The ultrasound guided cyst aspiration procedure was explained to the patient. The risks, benefits, alternatives were discussed. An informed consent was then obtained. The patient was placed in supine positioning for imaging and for the procedure. The overlying skin was prepped with betadine and sterilely draped in usual sterile fashion. 10 ml 1% lidocaine was used as anesthetic into the skin and deeper breast tissue up to area of concern in the right 7:00 breast 4 cm from the nipple. Under ultrasound guidance, an 12-gauge spinal needle was advanced into the cyst and aspiration yielded .5 mL of clear. The fluid was labeled and sent for laboratory analysis. A clip was left in lesion. Good hemostasis was obtained with direct pressure. Postprocedure mammogram: The patient was transferred to mammography for physician ordered post procedure mammogram for clip placement verification. The clip is in the expected region of the biopsy. The patient tolerated the procedure well without any immediate complication. The patient was discharged to home in stable condition. Impression: Successful ultrasound guided cyst aspiration right 7:00 breast. Cytology pending. Pathology Results: Result: Benign. Pathology and radiology were reviewed. Findings are concordant. RIGHT BREAST, 7:00, FINE NEEDLE ASPIRATE: Clusters of bland apocrine lining cells, background degenerated cellular material, blood, and foamy histiocytes consistent with benign apocrine cyst/cyst contents. Overall Assessment: Benign Assessment: MG diagnostic mammo RT wo CAD - Right: Benign, BI-RAD 2. Management: Diagnostic Mammogram of the right breast in 6 months. Electronically signed and approved by: Charlie Cordon M.D. Radiologis
== END ==
LOC: RADUSWWP 10:08
PROVIDERS: ATTEND Internal Medicine
DX: R92.8 Other abnormal and inconclusive findings on diagnostic imaging of breast (principal); Z78.0 Asymptomatic menopausal state
CPT/HCPCS: 88305; 77065; 76942; 19000; A4648

== ENCOUNTER → 2024-12-30 | Outpatient (CLI) | payer OTHER, MEDICARE ==
--- NOTE | 2024-12-30 11:57 | XR ---
EXAMINATION TYPE: XR chest 2V DATE OF EXAM: 12/30/2024 11:44 AM COMPARISON: Chest radiographs from 07/25/2015 TECHNIQUE: XR chest 2V Frontal and lateral views of the chest. CLINICAL INDICATION:Female, 69 years old with history of R05.9 COUGH, UNSPECIFIED; FINDINGS: Lungs/Pleura: There is no evidence of pleural effusion, focal consolidation, or pneumothorax. Pulmonary vascularity: Unremarkable. Heart/mediastinum: Cardiomediastinal silhouette is unremarkable. Musculoskeletal: Multiple level degenerative disc disease changes seen throughout the spine. IMPRESSION: No acute cardiopulmonary disease/process. [facility], , 12/30/2024 11:55 AM
== END | disposition home or self-care (01) ==
LOC: RADXRMAIN 11:29
PROVIDERS: ATTEND Internal Medicine
DX: R05.3 Chronic cough (principal)
CPT/HCPCS: 71046

== ENCOUNTER → 2025-04-03 | Outpatient (CLI) | payer OTHER, MEDICARE ==
[2025-04-03 15:28] LABS: Basophils # (A) 0.12 X 10*3/uL (0.00-0.10); Basophils % (A) 1.6 %; Eosinophils # (A) 0.27 X 10*3/uL (0.04-0.35); Eosinophils % (A) 3.6 %; HCT 41.9 % (37.2-46.3); HGB 13.2 g/dL (12.0-15.0); Lymphocytes # (A) 1.85 X 10*3/uL (0.90-5.00); Lymphocytes % (A) 24.8 %; MCH 30.1 pg (27.0-32.0); MCHC 31.5 g/dL (32.0-37.0); MCV 95.7 FL (80.0-97.0); Mean Platelet Volume 11.6 FL (9.5-12.2); Monocytes # (A) 0.62 X 10*3/uL (0.20-1.00); Monocytes % (A) 8.3 %; NRBC Per 100 WBC 0 X 10*3/uL (0.00-0.01); Neutrophils # (A) 4.59 X 10*3/uL (1.80-7.70); Neutrophils % (A) 61.4 %; Platelet Count 280 X 10*3/uL (140-440); RBC 4.38 X 10*6/uL (4.10-5.20); RDW 13.1 % (11.5-14.5); WBC 7.47 X 10*3/uL (4.50-10.00)
[2025-04-03 15:40] LABS: ALT 15 U/L (8-44); AST 19 U/L (13-35); Albumin 4.4 g/dL (3.8-4.9); Albumin/Globulin Ratio 1.29 Ratio (1.60-3.17); Alkaline Phosphatase 76 U/L (41-126); Blood Urea Nitrogen 45.6 mg/dL (9.0-27.0); Calcium 10.6 mg/dL (8.7-10.3); Carbon Dioxide 26.7 mmol/L (21.6-31.8); Chloride 102 mmol/L (96-109); Globulin 3.4 g/dL (1.6-3.3); Glucose 99 mg/dL (70-110); Magnesium 1.7 mg/dL (1.5-2.4); Phosphorus 3.1 mg/dL (2.4-5.1); Potassium 4.9 mmol/L (3.5-5.5); Sodium 141 mmol/L (135-145); Total Bilirubin 0.7 mg/dL (0.3-1.2); Total Protein 7.8 g/dL (6.2-8.2)
[2025-04-03 16:06] LABS: Appearance,Urine Clear (Clear); Bilirubin,Urine Negative (Negative); Blood,Urine Negative (Negative); Color,Urine Yellow (Yellow); Ketones,Urine Negative (Negative); Nitrite,Urine Negative (Negative); Specific Gravity,Urine 1.007 (1.001-1.030); Urobilinogen,Urine 0.2 E.U./DL
[2025-04-03 16:19] LABS: Bacteria,Urine None Seen (None Seen)
[2025-04-03 21:09] LABS: Urine Creatinine 12.3 mg/dL (28.0-217.0)
== END | disposition home or self-care (01) ==
LOC: LABWHC1 10:16
PROVIDERS: ATTEND Internal Medicine
DX: N18.31 Chronic kidney disease, stage 3a (principal)
CPT/HCPCS: 36415; 80053; 81001; 82043; 82570; 83735; 84100; 85025

== ENCOUNTER → 2025-04-12 | Outpatient (CLI) | payer OTHER ==
--- NOTE | 2025-04-12 09:28 | US ---
EXAMINATION TYPE: US kidneys/renal and bladder DATE OF EXAM: 04/12/2025 COMPARISON: NONE CLINICAL INDICATION: Female, 70 years old with history of N18.31 CKD STG 3; TECHNIQUE: Grayscale imaging of the bilateral kidneys and urinary bladder: FINDINGS: EXAM MEASUREMENTS: Right Kidney: 9.3x4.6x4.6 cm Left Kidney: 10.3x4.8x4.3 cm suboptimal study due to pt body habitus & severe overlying gas Right Kidney: ?mildly dilated renal pelvis Left Kidney: partially obscured by bowel, wnl as best visualized Bladder: wnl Bilateral Jets seen: left: limited, right: not well seen Mildly dilated right renal pelvis without hydronephrosis. No shadowing calculus or solid mass identif ied. Corticomedullary differentiation is maintained. The left kidney is partially obscured by overlyi ng bowel gas. No evidence for hydronephrosis, shadowing calculus or solid mass. Corticomedullary diff erentiation is maintained. The urinary bladder is anechoic with the left ureteral jet identified. IMPRESSION: No hydronephrosis or nephrolithiasis. [facility], , 04/12/2025 9:26 AM
== END | disposition home or self-care (01) ==
LOC: RADUSWWP 08:57
PROVIDERS: ATTEND Internal Medicine
DX: N18.31 Chronic kidney disease, stage 3a (principal)
CPT/HCPCS: 76770